=== PATIENT | female | born 1965 | race Caucasian/White ===

== ENCOUNTER 2019-03-24 15:01 | Emergency (ER) | payer OTHER ==
[~2019-03-24] VITALS: Ht 157.5 cm; Wt 70.3 kg
[2019-03-24 15:08] VITALS: Ht 157.5 cm; Wt 70.3 kg
[2019-03-24 15:27] LABS: UA SPECIFIC GRAVITY <=1.005 (1.005-1.035); microscopic required? YES; urine erythrocyte NEGATIVE (NEGATIVE)
[2019-03-24 17:24] LABS: BASOPHIL % 0.4 % (0-2); PLATELET COUNT 263 x10^3mcL (130-400); RED CELL DISTRIBUTION WIDTH 13.3 % (11.5-14.5)
[2019-03-24 17:34] LABS: CARBON DIOXIDE 29.7 mmol/L (21-32); CHLORIDE SERUM 103 mmol/L (98-107); CREATININE SERUM 0.8 mg/dL (0.6-1.0); GFR1 > 60 mL/min; GLUCOSE SERUM 90 mg/dL (74-106); POTASSIUM SERUM 4.2 mmol/L (3.5-5.1); SODIUM SERUM 141 mmol/L (136-145)
[2019-03-24 17:39] LABS: ALBUMIN 4.1 g/dL (3.4-5.0); ALKALINE PHOSPHATASE 79 U/L (46-116); ALT/SGPT 44 U/L (14-59); AST/SGOT 33 U/L (15-37); BILIRUBIN TOTAL 0.29 mg/dL (0.20-1.00)
[2019-03-24 17:48] LABS: T3 TOTAL 1.12 ng/mL
[2019-03-24 17:50] LABS: FREE THYROXINE INDEX 3.2 ug/dL (1.4-4.5); T4(THYROXINE) 9.2 ug/dL (4.7-13.3)
[2019-03-24] MEDS ORDERED: WELSR100 PO (18:10)
[2019-03-24] MEDS ORDERED: CLONAZEPAM0.125 M1 (18:11)
[2019-03-24] MEDS ORDERED: ZYRTEC10 MG (18:11)
[2019-03-24] MEDS ORDERED: ADDERALL10 MG (18:11)
[2019-03-24] MEDS ORDERED: AMOXICILLI125 MG/5 M (18:11)
[2019-03-24 18:45] LABS: AMPHETAMINE QUAL UR NONE DETECTED (See below)
--- NOTE | 2019-03-25 07:26 | NUR ---
[facility] still actively working on finding placement for this pt. Will contact with any updates.
[2019-03-25 13:45] VITALS: BP 98/40
== END 2019-03-25 13:45 ==
LOC: ED 15:01
PROVIDERS: Emergency Medicine
DX: F32.3 Major depressive disorder, single episode, severe with psychotic features (principal); K02.9 Dental caries, unspecified; F41.9 Anxiety disorder, unspecified; F17.210 Nicotine dependence, cigarettes, uncomplicated
CPT/HCPCS: 36415; 84439; G0480